=== PATIENT | female | born 1965 | race Two or more races ===

== ENCOUNTER 2017-12-23 12:02 | Inpatient (IN) | payer OTHER ==
[~2017-12-23] VITALS: Ht 162.6 cm; Wt 40.9 kg
[2017-12-23 13:58] LABS: Basophils # (auto) 0 uL; Eosinophils # (auto) 0.1 uL; Eosinophils % (auto) 1.8 % (0.0-7.0); Hematocrit 44.2 % (36.0-46.0); Hemoglobin 14.9 g/dL (12.2-16.2); Lymphocytes # (auto) 1.7 uL; Lymphocytes % (auto) 33.8 % (10.0-50.0); Mean Corpuscular Hemoglobin 31.7 pg (28.0-32.0); Mean Corpuscular Hgb Conc. 33.8 g/dL (32.0-36.0); Mean Corpuscular Volume 93.7 fL (80.0-100.0); Monocytes # (auto) 0.5 uL; Neutrophils # (auto) 2.6 uL; Neutrophils % (auto) 53.4 % (37.0-80.0); Nucleated Red Blood Cells % 0.1 %; Platelet Count (auto) 228 10^3/uL (140-450); Red Blood Cells 4.72 10^6/uL (4.0-5.20); Red Cell Distribution Width 13.7 % (11.8-14.3); White Blood Cell 4.9 10^3/uL (4.4-10.8)
[2017-12-23 14:02] LABS: Albumin 3.9 g/dL (3.4-5.0); BUN/Creatinine Ratio 16.9; Calcium 9.2 mg/dL (8.5-10.1); INR 0.93 (0.9-1.15); Partial Thromboplastin Time 24.6 sec (23.78-33.04); Potassium 3.7 mmol/L (3.5-5.1)
[2017-12-23 14:05] LABS: Bilirubin, Total 0.5 mg/dL (0.2-1.0); Total Protein 8.5 g/dL (6.4-8.2)
[2017-12-23] MEDS ORDERED: SODIUM CHLORIDE 0.9% 1,000 ML IV ONE (16:00)
[2017-12-23 16:45] LABS: Magnesium 2.4 mg/dL (1.6-2.6)
[2017-12-23] MEDS ORDERED: KETOROLAC TROMETH 30 MG/ML 1ML VIAL IV ONE (17:00)
[2017-12-23] MEDS ORDERED: METOCLOPRAMIDE HCL 5MG/ml INJ 2ml VIAL IV ONE (17:00)
[2017-12-23 18:59] LABS: Urine Bacteria FEW /hpf (None Seen); Urine Blood 2+ /uL (Negative); Urine Mucus FEW (None Seen); Urine Specific Gravity 1.026 (1.001-1.035); Urine WBC 15 /hpf (0 - 5)
[2017-12-23] MEDS ORDERED: cefTRIAXone 1GM/10ml IVPUSH 10 ML IV ONE (19:30)
[2017-12-23] MEDS ORDERED: PANTOPRAZOLE 40 MG TAB PO ONE (19:30)
[2017-12-23] MEDS ORDERED: ONDANSETRON HCL 4 MG/2 ML VIAL IV PRN (19:45)
[2017-12-23] MEDS ORDERED: TEMAZEPAM 15 MG CAP PO PRN (19:45)
[2017-12-23] MEDS: SODIUM CHLORIDE 0.9% 1,000 ML IV SCH (20:44)
[2017-12-23 21:00] VITALS: BP_SYST 127; BP_DIAS 61; BP_DIAS 69
[2017-12-23] MEDS: NEOMYCIN-POLYMY-DEXAMETH 0.1% OPTH(EYE) SUSP 5ML LEFTEYE SCH (22:00)
[2017-12-23] MEDS: FAMOTIDINE 20 MG TAB PO SCH (22:44)
[2017-12-24] MEDS: NEOMYCIN-POLYMY-DEXAMETH 0.1% OPTH(EYE) SUSP 5ML LEFTEYE SCH ×6 (02:00→22:00)
[2017-12-24 04:10] LABS: Basophils # (auto) 0.1 uL; Basophils % (auto) 1.6 % (0.0-2.0); Eosinophils # (auto) 0.1 uL; Eosinophils % (auto) 3.5 % (0.0-7.0); Hemoglobin 12.9 g/dL (12.2-16.2); Lymphocytes # (auto) 1.8 uL; Lymphocytes % (auto) 42.4 % (10.0-50.0); Mean Corpuscular Hemoglobin 31.2 pg (28.0-32.0); Mean Corpuscular Hgb Conc. 33.2 g/dL (32.0-36.0); Mean Corpuscular Volume 94.1 fL (80.0-100.0); Monocytes # (auto) 0.4 uL; Monocytes % (auto) 9.9 % (0.0-12.0); Neutrophils # (auto) 1.8 uL; Neutrophils % (auto) 42.6 % (37.0-80.0); Platelet Count (auto) 175 10^3/uL (140-450); Red Blood Cells 4.14 10^6/uL (4.0-5.20); Red Cell Distribution Width 13.8 % (11.8-14.3); White Blood Cell 4.1 10^3/uL (4.4-10.8)
[2017-12-24 04:41] LABS: BUN/Creatinine Ratio 17.3; Bilirubin, Total 0.6 mg/dL (0.2-1.0); Calcium 8.3 mg/dL (8.5-10.1); Potassium 3.5 mmol/L (3.5-5.1); Total Protein 6.6 g/dL (6.4-8.2)
[2017-12-24 05:07] VITALS: BP 104/69
[2017-12-24 08:00] VITALS: BP 110/67
[2017-12-24] MEDS ORDERED: PANTOPRAZOLE 40 MG TAB PO SCH (10:00)
[2017-12-24] MEDS: MORPHINE SULFATE 8mg/ml INJ SDV IV PRN ×2 (10:13→20:35)
[2017-12-24] MEDS: FAMOTIDINE 20 MG TAB PO SCH (10:13)
[2017-12-24] MEDS: MULTIPLE VITAMIN TAB PO SCH (10:13)
[2017-12-24 12:00] VITALS: BP 121/69
[2017-12-24] MEDS: SODIUM CHLORIDE 0.9% 1,000 ML IV SCH (12:11)
[2017-12-24 16:54] VITALS: BP 117/71
[2017-12-24 21:40] VITALS: BP 99/63
[2017-12-24] MEDS ORDERED: cefTRIAXone 1GM/10ml IVPUSH 10 ML IV SCH (22:00)
[2017-12-24] MEDS: PANTOPRAZOLE 40 MG/10 ML VIAL IV SCH (23:00)
[2017-12-25] MEDS: NEOMYCIN-POLYMY-DEXAMETH 0.1% OPTH(EYE) SUSP 5ML LEFTEYE SCH ×6 (02:00→21:50)
[2017-12-25] MEDS: SODIUM CHLORIDE 0.9% 1,000 ML IV SCH ×2 (04:51→10:45)
[2017-12-25] MEDS: MORPHINE SULFATE 8mg/ml INJ SDV IV PRN ×3 (05:04→23:31)
[2017-12-25 05:34] VITALS: BP 98/60
[2017-12-25 08:00] VITALS: BP 106/67
[2017-12-25] MEDS: MULTIPLE VITAMIN TAB PO SCH (10:42)
[2017-12-25] MEDS: PANTOPRAZOLE 40 MG/10 ML VIAL IV SCH ×2 (10:42→21:49)
[2017-12-25] MEDS: DOCUSATE SOD 100 MG CAP PO PRN ×2 (10:49→21:49)
[2017-12-25 12:00] VITALS: BP 97/54
[2017-12-25 17:00] VITALS: BP 106/76
[2017-12-25 22:00] VITALS: BP 107/65
[2017-12-26] MEDS: NEOMYCIN-POLYMY-DEXAMETH 0.1% OPTH(EYE) SUSP 5ML LEFTEYE SCH ×6 (02:00→21:58)
[2017-12-26] MEDS: MORPHINE SULFATE 8mg/ml INJ SDV IV PRN ×2 (03:50→17:54)
[2017-12-26 05:00] VITALS: BP 103/51
[2017-12-26 09:00] VITALS: BP 99/55
[2017-12-26] MEDS: MULTIPLE VITAMIN TAB PO SCH (10:00)
[2017-12-26] MEDS: PANTOPRAZOLE 40 MG/10 ML VIAL IV SCH (10:28)
[2017-12-26] MEDS ORDERED: LIDOCAINE VISCOUS 2% 15ML UD ONE (10:36)
[2017-12-26] MEDS ORDERED: fentaNYL CITRATE 100 MCG/2 ML VL ONE (11:19)
[2017-12-26] MEDS ORDERED: diphenhdrAMINE HCL 50 MG/1 ML VL ONE (11:20)
[2017-12-26] MEDS ORDERED: MIDAZOLAM HCL 5 MG/ML-1ML VIAL ONE (11:20)
[2017-12-26 13:00] VITALS: BP 117/62
[2017-12-26] MEDS ORDERED: LEVOFLOXACIN 500 MG TAB PO ONE (13:45)
[2017-12-26] MEDS: SODIUM CHLORIDE 0.9% 1,000 ML IV SCH (14:11)
[2017-12-26 17:00] VITALS: BP 117/66
[2017-12-26] MEDS: PANTOPRAZOLE 40 MG TAB PO SCH (21:58)
[2017-12-26 22:00] VITALS: BP 89/59
[2017-12-27] MEDS: NEOMYCIN-POLYMY-DEXAMETH 0.1% OPTH(EYE) SUSP 5ML LEFTEYE SCH ×4 (01:42→14:00)
[2017-12-27 05:00] VITALS: BP 119/71
[2017-12-27] MEDS: MORPHINE SULFATE 8mg/ml INJ SDV IV PRN (06:34)
[2017-12-27] MEDS: SODIUM CHLORIDE 0.9% 1,000 ML IV SCH (06:37)
[2017-12-27 06:55] LABS: Basophils # (auto) 0 uL; Basophils % (auto) 0.9 % (0.0-2.0); Eosinophils # (auto) 0.2 uL; Eosinophils % (auto) 5.1 % (0.0-7.0); Hematocrit 36.6 % (36.0-46.0); Hemoglobin 12.7 g/dL (12.2-16.2); Lymphocytes # (auto) 1.2 uL; Lymphocytes % (auto) 35.8 % (10.0-50.0); Mean Corpuscular Hemoglobin 32.8 pg (28.0-32.0); Mean Corpuscular Hgb Conc. 34.6 g/dL (32.0-36.0); Mean Corpuscular Volume 94.6 fL (80.0-100.0); Monocytes # (auto) 0.4 uL; Monocytes % (auto) 12.2 % (0.0-12.0); Neutrophils # (auto) 1.5 uL; Nucleated Red Blood Cells % 0.1 %; Platelet Count (auto) 168 10^3/uL (140-450); Red Blood Cells 3.87 10^6/uL (4.0-5.20); Red Cell Distribution Width 13.9 % (11.8-14.3); White Blood Cell 3.3 10^3/uL (4.4-10.8)
[2017-12-27 07:19] LABS: BUN/Creatinine Ratio 18.9; Calcium 8.7 mg/dL (8.5-10.1); Potassium 4.2 mmol/L (3.5-5.1)
[2017-12-27 09:00] VITALS: BP 100/59
[2017-12-27] MEDS: PANTOPRAZOLE 40 MG TAB PO SCH (09:50)
[2017-12-27] MEDS: MULTIPLE VITAMIN TAB PO SCH (09:50)
[2017-12-27] MEDS ORDERED: LEVOFLOXACIN 500 MG TAB PO SCH (10:00)
[2017-12-27] MEDS ORDERED: LEVO500T21 PO (10:34)
[2017-12-27] MEDS ORDERED: MULTTAB99 PO (10:34)
[2017-12-27] MEDS ORDERED: PANT40T PO (10:34)
[2017-12-27] MEDS ORDERED: MORPHINE SULFATE 10 MG/ML INJ 1ML SDV IV PRN (12:15)
[2017-12-27 13:00] VITALS: BP 97/56
== END 2017-12-27 16:35 | disposition hospice, home (50) | DRG 463 ==
LOC: ER 12:02 → OVERFLOW 12:03 → CENTRAL 20:43
PROVIDERS: ADMIT Internal Medicine; ATTEND Internal Medicine
PROC: 0DB68ZX Excision of Stomach, Via Natural or Artificial Opening Endoscopic, Diagnostic (ICD-10-PCS; 2017-12-26)
PROC: 0DB58ZX Excision of Esophagus, Via Natural or Artificial Opening Endoscopic, Diagnostic (ICD-10-PCS; principal; 2017-12-26 12:27)
DX: N39.0 Urinary tract infection, site not specified (principal); E43 Unspecified severe protein-calorie malnutrition; K29.71 Gastritis, unspecified, with bleeding; K85.90 Acute pancreatitis without necrosis or infection, unspecified; G20 Parkinson's disease; R91.1 Solitary pulmonary nodule; R74.8 Abnormal levels of other serum enzymes; G89.29 Other chronic pain; B96.20 Unspecified Escherichia coli [E. coli] as the cause of diseases classified elsewhere; F17.210 Nicotine dependence, cigarettes, uncomplicated; J44.9 Chronic obstructive pulmonary disease, unspecified; K20.9 Esophagitis, unspecified; N18.2 Chronic kidney disease, stage 2 (mild); Z83.3 Family history of diabetes mellitus; Z85.3 Personal history of malignant neoplasm of breast; Z90.49 Acquired absence of other specified parts of digestive tract; Z90.710 Acquired absence of both cervix and uterus; Z90.13 Acquired absence of bilateral breasts and nipples; Z82.49 Family history of ischemic heart disease and other diseases of the circulatory system; Z88.0 Allergy status to penicillin; Z88.8 Allergy status to other drugs, medicaments and biological substances; Z88.6 Allergy status to analgesic agent; Z68.1 Body mass index [BMI] 19.9 or less, adult
CPT/HCPCS: 36415; 43239; 71045; 71250; 74176; 80048; 80053; 81001; 82150; 83690; 83735; 84443; 85025; 85610; 85730; 87086; 87088; 87186; 93005; 96361; 96374; 96375; 97116; 97163; C9113; J1885; J2250; J2270